=== PATIENT | female | born 1985 | race Caucasian/White ===

== ENCOUNTER 2016-10-05 02:16 | Emergency (ER) | payer OTHER ==
[~2016-10-05] VITALS: Ht 162.6 cm; Wt 63.6 kg
[~2016-10-05 02:16] MED LIST: NPR500T PO; OMPR20CCR PO; PREN1TAB47 PO
[2016-10-05 02:19] VITALS: BP 149/96; RESP 16; O2SAT 100
--- NOTE | 2016-10-05 02:29 | ED.REPORT ---
HPI-Ear Pain/Problem/FB Date of Service Oct 05, 2016 ED Provider: Dr. Sher Brady M.D. A 31 year old female with a history of thyroid disease and migraines presents to the ED with intermittent left ear pain onset 10 days ago. The pain has worsened in the past hour, waking her from sleep. She also reports congestion in the affected ear. She has had similar symptoms in the past that resolved with [id number] medication but her current symptoms have not. Nursing Notes Stated Complaint: R EAR PAIN Chief Complaint: ENT & Mouth Nursing Notes Reviewed: Yes Allergies: Coded Allergies: No Known Allergies (Verified Allergy, Unknown, 03/22/16) Scheduled Amoxicillin/Clav K 875-125 mg (Augmentin 875-125 mg) 1 Each Tablet 1 TABLET PO BID Omeprazole-Expunged Drug, Do Not Renew! (Omeprazole-Expunged Drug, Do Not Renew! ) 20 Mg Capsule.dr 20 MG PO DAILY Vit/Fe Fumarate/Fa-Expunged Drug, Do (-Expunged Drug, Do Not Renew!) 1 Tab Tablet PO DAILY Scheduled PRN Ibuprofen (Ibuprofen) 600 Mg Tablet 600 MG PO QID PRN PRN For Pain Naproxen (Naproxen) 500 Mg Tab 500 MG PO BID PRN PRN For Pain General Time Seen by MD: 02:28 Chief Complaint Ear problem left, Pain Hx Obtained From: Patient Arrived By: Walk-in Onset Occurred: More than a week ago... (10 days) Symptom Duration: Intermittent Location: : Entire ear Quality: Painful Severity: Current: Moderate Severity: Maximum: Moderate Associated with: Denies: Fever Pertinent Negative: Relieved by nothing Recent Healthcare: No recent doctor visit Similar Sx Previous: Yes Past Medical History Past Medical History TBI (3 skull fractures, and brain bleed: per patient) Migraines Reports: Thyroid disease Past Surgical History Left wrist Smoking History Never Smoker Social History Alcohol Use: "Social" Drug Use: Denies drug use Other Social History: Occupation work as a medical records receptionist at [employer] Ambulatory Status Independent Review of Systems Review of Systems Note: + left ear congestion Basic Review of Systems Respiratory: No shortness of breath, No cough, No wheeze GI: No abdominal pain, No vomiting Musculoskeletal: No extremity swelling, No extremity pain Constitutional: Denies: Fever Ears / Nose / Throat: Reports: Earache left Complete sys rev & neg: except as marked. Physical Exam Initial Vital Signs Vital Signs (First) Date Time Temp Pulse Resp B/P Pulse Ox O2 Delivery O2 Flow Rate FiO2 10/05/16 02:19 36.3 89 16 149/96 100 Room Air Initial VS: Reviewed Head / Eyes: Atraumatic, Normocephalic Neck: Non-tender, Full range of motion Extremities: Vascular intact, Neuro intact Skin: Warm, Dry, No cyanosis Neurologic: Alert, Oriented, Nonfocal Psychiatric: Mood/affect normal, Behavior normal, Normal thought content General/Constitutional: Awake, Alert, No acute distress ENT: Airway patent, Mucous membranes moist Left Ear / Mastoid: Positive: External canal red, External shirring tender..., Mastoid area red, Mastoid area tender, Tympanic memb retracted, Tympanic membrane red Right ear normal Re-Eval/Medical Decision Med Decision/Clinical Course 31-year-old with a day of ear pain and apparent otitis media and externa. Her canal is swollen and triangular in shape and erythematous. TM is retracted and red. She is begun with Cortisporin suspension instilled onto an earwick. Augmentin orally. Ibuprofen as needed. Follow-up with PCP. Source of Hx: Old records Re-Evaluation/Progress : Time of Eval: 02:55 Patient Status: Condition improved Re-Evaluation/Progress Note: Discussed with patient diagnosis and plan for discharge. Follow-up and return to the ER instructions given. Patient agrees with plan for care and all questions were addressed. Counseled Regarding: Diagnosis, Need for follow-up, When/why to return to ED Discharge & Departure Shift Change Sign-Out Response to Therapy: Improved Primary Impression: Otitis media Otitis media type: suppurative Laterality: left Chronicity: acute Recurrence: not specified Spontaneous tympanic membrane rupture: without spontaneous rupture Qualified Code: H66.002 - Acute suppurative otitis media without spontaneous rupture of ear drum, left ear Additional Impression: Otitis externa Otitis externa type: other infective Laterality: left Chronicity: acute Qualified Code: H60.392 - Other infective otitis externa, left ear Disposition: Home Discharge Condition All VS Reviewed: Yes Condition: Improved Patient Instructions: Otitis Externa (ED), Otitis Media (ED) Additional Instructions: Apply three drops of Cortisporin Otic to the ear wick four times daily for five days You may remove the wick after three days but continue the drops. Augmentin twice daily for ten days. Follow-up with your doctor in the office. Ibuprofen four times daily as needed for pain Referrals: OTHER,PHYSICIAN (PCP) (Family) Scribe Attestation Portions of this note were transcribed by Emelina Lindsay. I, Dr. Brady, personally performed the history, physical exam, and medical decision-making; I reviewed and confirmed the accuracy of the information in the transcribed note. Signed by: Heber Church, 10/05/2016, 03:54 Sher Brady MD Oct 05, 2016 02:29 EMELINA LINDSAY Oct 05, 2016 02:33
[2016-10-05] MEDS ORDERED: Neomycin-Polymyxin-HC 10 mL Otic Suspension LEFT_EAR ONE (02:35)
[2016-10-05] MEDS ORDERED: Amoxicillin-Clav 875-125 mg Tablet PO ONE (02:35)
[2016-10-05] MEDS ORDERED: IBUP-1827 PO (02:37)
[2016-10-05] MEDS ORDERED: AMOX-366 PO (02:37)
[2016-10-05 04:14] VITALS: BP 149/96; PULSE 89; RESP 16; O2SAT 100
== END 2016-10-05 03:00 | disposition home or self-care (01) ==
LOC: SED 02:16
DX: H66.002 Acute suppurative otitis media without spontaneous rupture of ear drum, left ear (principal); H60.392 Other infective otitis externa, left ear